=== PATIENT | female | born 1955 | race Caucasian/White ===

== ENCOUNTER → 2016-10-21 | Outpatient (CLI) | payer BC, OTHER ==
[~2016-10-21] MED LIST: AMITRIPTYLINE H50 M1 PO; BENADRYL25 M2 PO; BRINTELLIX10 PO; CATAPRES-TTS 10.1 M1 TD; DEPAKOTE 250MG250 MG PO; DEPAKOTE ER 25250 MG PO; DUTOPROL 12.5 M1 TE1 PO; FLEXERIL 1010 MG/TAB PO; LEVAQUIN 5500 MG/TA1 PO; LOMOTIL 0.025 M1 TAB PO; METOPROLOL SUCC25 MG PO; NORVASC 10MG10 MG PO; NORVASC 5MG5 MG/TAB PO; TOPROL XL 50MG50 MG PO; VALTREX1 GM PO; XANAX .25M0.25 MG/TA PO
== END ==
LOC: BHSO 15:17
DX: F33.42 Major depressive disorder, recurrent, in full remission (principal)

== ENCOUNTER → 2016-11-05 | Outpatient (CLI) | payer BC, OTHER | LOC: MC.RAD 14:40 | DX: D24.2 Benign neoplasm of left breast (principal); D24.1 Benign neoplasm of right breast ==

== ENCOUNTER → 2017-01-20 | Outpatient (CLI) | payer BC | LOC: BHSO 15:41 | DX: F33.42 Major depressive disorder, recurrent, in full remission (principal) ==

== ENCOUNTER → 2017-04-20 | Outpatient (CLI) | payer BC | LOC: BHSO 15:46 | DX: F33.42 Major depressive disorder, recurrent, in full remission (principal) ==

== ENCOUNTER → 2017-08-10 | Outpatient (CLI) | payer BC | LOC: BHSO 07:54 | DX: F33.41 Major depressive disorder, recurrent, in partial remission (principal) ==

== ENCOUNTER → 2017-11-19 | Outpatient (CLI) | payer BC | LOC: BHSO 08:13 | DX: F33.41 Major depressive disorder, recurrent, in partial remission (principal) | CPT/HCPCS: G0463 ==

== ENCOUNTER → 2018-01-14 | Outpatient (CLI) | payer BC | LOC: BHSO 08:44 | DX: F33.42 Major depressive disorder, recurrent, in full remission (principal) | CPT/HCPCS: G0463 ==

== ENCOUNTER → 2018-04-12 | Outpatient (CLI) | payer BC | LOC: MHCPAIN 07:49 | DX: G89.29 Other chronic pain (principal); M47.817 Spondylosis without myelopathy or radiculopathy, lumbosacral region; M54.16 Radiculopathy, lumbar region; M53.3 Sacrococcygeal disorders, not elsewhere classified | CPT/HCPCS: G0463 ==

== ENCOUNTER → 2018-04-14 | Outpatient (CLI) | payer BC ==
[~2018-04-14] MED LIST changes: +LIORESAL 1010 MG/TAB PO; +PHENERGAN 25 TA25 MG PO; +PRISTIQ100 MG PO; +SEROQUEL 1100 MG/TAB PO
== END ==
LOC: BHSO 15:44
DX: F41.1 Generalized anxiety disorder (principal)
CPT/HCPCS: G0463

== ENCOUNTER 2018-04-16 13:12 | Emergency (ER) | payer BC ==
[~2018-04-16] VITALS: Ht 157.5 cm; Wt 85.5 kg
[~2018-04-16 13:12] MED LIST changes: -LIORESAL 1010 MG/TAB PO; -PHENERGAN 25 TA25 MG PO; -PRISTIQ100 MG PO; -SEROQUEL 1100 MG/TAB PO
[2018-04-16 13:19] VITALS: TEMP 98
[2018-04-16] MEDS ORDERED: LIORESAL 1010 MG/TAB PO (13:30)
[2018-04-16] MEDS ORDERED: SEROQUEL 1100 MG/TAB PO (13:30)
[2018-04-16] MEDS ORDERED: PRISTIQ100 MG PO (13:31)
[2018-04-16 13:50] LABS: HEMATOCRIT 41.4 % (37.0-47.0); HEMOGLOBIN 14.1 g/dl (12.5-16.0); MEAN CELL VOLUME 90 fl (80.0-100.0); MEAN CORPUSCULAR HEMOGLOBIN 31 pg (27.0-31.0); MEAN CORPUSCULAR HGB CONC 34 g/dl (33.0-37.0); MEAN PLATELET VOLUME 9.1 fl (7.4-10.4); PLATELET COUNT 270 K/mm3 (130-400); RED BLOOD COUNT 4.59 M/mm3 (4.10-5.30); REDCELL DISTRIBUTION WIDTH-CV 12.7 % (11.5-14.5)
[2018-04-16 14:00] LABS: ALBUMIN 4.2 gm/dL (3.5-5.0); BILIRUBIN,TOTAL 0.6 mg/dL (0.0-1.0); CALCIUM 9.5 mg/dL (8.4-10.2); CREATININE, serum 0.63 mg/dL (0.52-1.25); TOTAL PROTEIN 7.8 gm/dL (6.4-8.2)
[2018-04-16 14:33] LABS: COLLECTION METHOD CATHETER
[2018-04-16 14:48] LABS: MUCOUS Present /lpf; PH 7 (5-8); SQUAMOUS EPITHELIAL None Seen /hpf; URINE APPEARANCE Clear; URINE BACTERIA None Seen /hpf; URINE BILIRUBIN Negative (NEGATIVE); URINE BLOOD Negative (NEGATIVE); URINE COLOR Yellow; URINE GLUCOSE Negative (NEGATIVE); URINE KETONE Trace (NEGATIVE); URINE LEUKOCYTE ESTERASE Negative (NEGATIVE); URINE NITRATE Negative (NEGATIVE); URINE PROTEIN(semi-quant) 1+ (NEGATIVE); URINE UROBILINOGEN Negative (NEGATIVE)
[2018-04-16] MEDS ORDERED: PHENERGAN 25 TA25 MG PO (16:41)
[2018-04-16 17:32] VITALS: BP 172/103; PULSE 64
== END 2018-04-16 17:32 | disposition home or self-care (01) ==
LOC: COL.ER 13:12
PROVIDERS: Emergency Medicine
DX: R11.10 Vomiting, unspecified (principal); I10 Essential (primary) hypertension
CPT/HCPCS: J1885; J2405; J7030

== ENCOUNTER → 2018-04-18 | Outpatient (CLI) | payer BC ==
[~2018-04-18] MED LIST changes: +LIORESAL 1010 MG/TAB PO; +PHENERGAN 25 TA25 MG PO; +PRISTIQ100 MG PO; +SEROQUEL 1100 MG/TAB PO
== END ==
LOC: MHCPAIN 13:03
DX: M47.817 Spondylosis without myelopathy or radiculopathy, lumbosacral region (principal); M53.3 Sacrococcygeal disorders, not elsewhere classified; M54.16 Radiculopathy, lumbar region
CPT/HCPCS: G0260; J1040; Q9967

== ENCOUNTER → 2018-06-29 | Outpatient (CLI) | payer BC | LOC: MHCPAIN 15:09 | DX: G89.29 Other chronic pain (principal); M47.817 Spondylosis without myelopathy or radiculopathy, lumbosacral region; M53.3 Sacrococcygeal disorders, not elsewhere classified | CPT/HCPCS: G0463 ==

== ENCOUNTER → 2018-08-25 | Outpatient (CLI) | payer BC | LOC: BHSO 15:41 | DX: F33.41 Major depressive disorder, recurrent, in partial remission (principal) | CPT/HCPCS: G0463 ==

== ENCOUNTER → 2019-02-22 | Outpatient (CLI) | payer BC | LOC: BHSO 08:59 | DX: F33.41 Major depressive disorder, recurrent, in partial remission (principal) | CPT/HCPCS: G0463 ==

== ENCOUNTER → 2019-08-16 | Outpatient (CLI) | payer BC | LOC: BHSO 07:54 | DX: F33.42 Major depressive disorder, recurrent, in full remission (principal) | CPT/HCPCS: G0463 ==

== ENCOUNTER → 2020-04-23 | Outpatient (CLI) | payer BC | LOC: BHSO 08:47 | DX: F33.41 Major depressive disorder, recurrent, in partial remission (principal) | CPT/HCPCS: G0463 ==

== ENCOUNTER 2022-12-22 08:22 | Day surgery (SDC) | payer MEDICARE ==
[~2022-12-22] VITALS: Ht 157.5 cm; Wt 80.7 kg
[~2022-12-22 08:22] MED LIST changes: +HCTZ12.5TAB PO
[2022-12-22] MEDS ORDERED: PROTONIX 40MG T40 MG PO (09:54)
[2022-12-22 10:05] VITALS: BP 121/69; PULSE 56; TEMP 97.1
--- NOTE | 2022-12-22 10:05 | NUR ---
1005 PATIENT RETURNS TO ROOM 4 VIA CART. PATIENT IS DROWSY, BUT ALERTS TO VERBAL STIMULI. PATIENT AMBULATES TO RECLINER WITH THE ASSISTANCE OF 2 NURSES. RESPIRATIONS EVEN AND UNLABORED. VITAL SIGNS OBTAINED. PATIENT FRIEND IS IN ROOM. PATIENT DOES NOT WANT TO EAT OR DRINK ANYTHING AT THIS TIME. 1020 THIS NURSE REVIEWED DISCHARGE INSTRUCTIONS WITH PATIENT. PATIENT VERBALIZED UNDERSTANDING. 1025 DOCTOR IN ROOM TO SPEAK WITH PATIENT. 1030 DISCONTINUED IV FROM RIGHT WRIST WITH NO DIFFICULTIES. 1045 PATIENT DISCHARGES FROM UNIT VIA WHEELCHAIR IN STABLE CONDITION.
[2022-12-22 10:20] VITALS: BP 120/62; PULSE 53
[2022-12-22 10:35] VITALS: BP 122/77; PULSE 54
[2022-12-22 11:06] VITALS: BP 137/72; PULSE 58; TEMP 97.1
== END 2022-12-22 10:45 | disposition home or self-care (01) ==
LOC: SDCO 08:22
DX: K29.31 Chronic superficial gastritis with bleeding (principal); K26.9 Duodenal ulcer, unspecified as acute or chronic, without hemorrhage or perforation; K29.80 Duodenitis without bleeding; D12.2 Benign neoplasm of ascending colon; D12.4 Benign neoplasm of descending colon; D12.3 Benign neoplasm of transverse colon; K64.0 First degree hemorrhoids; K21.9 Gastro-esophageal reflux disease without esophagitis; I10 Essential (primary) hypertension; Z87.891 Personal history of nicotine dependence
CPT/HCPCS: J2704

== ENCOUNTER 2023-05-22 12:21 | Emergency (ER) | payer MEDICARE ==
[~2023-05-22] VITALS: Ht 157.5 cm; Wt 75.0 kg
[~2023-05-22 12:21] MED LIST changes: +PROTONIX 40MG T40 MG PO
[2023-05-22 12:59] LABS: COLLECTION METHOD CLEAN CATCH
[2023-05-22 13:20] LABS: MUCOUS Present (NOT PRESENT); URINE BACTERIA None Seen /hpf (NONE SEEN); URINE RBC 0-2 /hpf (0-2)
[2023-05-22 13:21] LABS: BASO % 0.4 % (0.0-2.0); GRAN # 5.7 K/mm3 (1.4-6.5); GRAN % 58.5 % (42.2-75.2); HEMOGLOBIN 12.1 g/dl (12.5-16.0); LYMPH # 2.7 K/mm3 (1.2-3.4); LYMPH % 27.5 % (20.0-51.0); MEAN CELL VOLUME 97 fl (80.0-100.0); MEAN CORPUSCULAR HEMOGLOBIN 32 pg (27-31); MEAN CORPUSCULAR HGB CONC 33 g/dl (33.0-37.0); MONO # 1.3 K/mm3 (0.1-0.6); MONO % 13.3 % (1.7-9.3); PLATELET COUNT 238 K/mm3 (130-400); RED BLOOD COUNT 3.82 M/mm3 (4.10-5.30); REDCELL DISTRIBUTION WIDTH-CV 13.5 % (11.5-14.5)
[2023-05-22 13:33] LABS: TRICYCLIC ANTIDEPRESS URINE NEGATIVE
[2023-05-22 13:36] LABS: PH 6.5 (5.0-8.5); URINE APPEARANCE Clear (CLEAR/HAZY); URINE BLOOD TRACE-INTACT (NEGATIVE); URINE COLOR Yellow (YELLOW); URINE GLUCOSE Negative (NEGATIVE); URINE KETONE TRACE (NEGATIVE); URINE NITRATE Negative (NEGATIVE); URINE PROTEIN(semi-quant) Negative (NEGATIVE)
[2023-05-22 13:55] LABS: ALANINE AMINOTRANSFERASE 12 U/L (0-55); ALBUMIN 3.9 gm/dL (3.4-4.8); ALKALINE PHOSPHATASE 60 U/L (40-150); ANION GAP 11 mmol/L (7-16); AST,SGOT 19 U/L (5-34); BILIRUBIN,TOTAL 0.5 mg/dL (0.2-1.2); BLOOD UREA NITROGEN 25 mg/dL (10-20); CARBON DIOXIDE 26 mmol/L (23-31); CHLORIDE 106 mmol/L (98-107); CREATININE, serum 0.79 mg/dL (0.57-1.11); GLUCOSE 94 mg/dL (70-99); POTASSIUM 3.7 mmol/L (3.5-4.5); SODIUM 143 mmol/L (136-145); TOTAL PROTEIN 7.5 gm/dL (6.2-8.1)
[2023-05-22 13:58] LABS: ALCOHOL(ethanol),MEDICAL < 10 mg/dL (0-10)
[2023-05-22 14:04] LABS: VALPROIC ACID (DEPAKENE) 35.5 ug/mL (43.5-90.5)
[2023-05-22 14:14] LABS: TSH w REFLEX 3.093 uIU/mL (0.350-4.940)
[2023-05-22] MEDS ORDERED: LIORESAL20 MG PO (14:32)
[2023-05-22] MEDS ORDERED: LIPITOR 10MG10 MG PO (14:32)
[2023-05-22] MEDS ORDERED: DEPAKOTE ER 50500 MG PO (14:33)
[2023-05-22] MEDS ORDERED: PROAIR HFA0.09 MG/AC IH (14:34)
[2023-05-22 14:43] LABS: ACETAMINOPHEN < 1.0 ug/mL (10-30); SALICYLATE < 5.0 mg/dL (15.0-30.0); TROPONIN-I < 0.010 ng/mL (0.00-0.033)
[2023-05-22 16:20] VITALS: BP 160/92; PULSE 65; TEMP 97.6
== END 2023-05-22 16:26 | disposition home or self-care (01) ==
LOC: COL.ER 12:21
PROVIDERS: Emergency Medicine
DX: R44.3 Hallucinations, unspecified (principal); Z91.040 Latex allergy status; Z20.822 Contact with and (suspected) exposure to COVID-19; Z28.310 Unvaccinated for COVID-19